=== PATIENT | male | born 1960 | race Caucasian/White ===

== ENCOUNTER 2018-12-26 13:45 | Inpatient (IN) | payer MEDICARE, OTHER ==
[~2018-12-26] VITALS: Ht 162.6 cm; Wt 156.9 kg
[2018-12-26] MEDS ORDERED: ASPIRIN 325 MG TABLET ONE (13:57)
[2018-12-26] MEDS ORDERED: NITROGLYCERIN 0.4 MG/TAB BOTTLE SL ONE ×2 (13:57→14:00)
[2018-12-26] MEDS ORDERED: IV NORMAL SALINE 500 ML BAG IV ONE (14:00)
[2018-12-26] MEDS ORDERED: ASPIRIN 325 MG TABLET PO ONE (14:00)
[2018-12-26 14:13] LABS: BASOPHILS # (AUTO) 0.1 K/uL (0.0-8.0); BASOPHILS % (AUTO) 1.2 % (0.0-2.0); EOSINOPHILS # (AUTO) 0.3 K/uL (0.0-0.7); EOSINOPHILS % (AUTO) 4.1 % (0.0-7.0); HEMATOCRIT 41.8 % (36.7-47.1); HEMOGLOBIN 13.6 g/dL (12.5-16.3); LYMPHOCYTES # (AUTO) 1.3 K/uL (20.0-40.0); LYMPHOCYTES % (AUTO) 20.1 % (20.5-51.5); MEAN CORPUSCULAR HEMOGLOBIN 31.1 uug (23.8-33.4); MEAN CORPUSCULAR HGB CONC 33 g/dL (32.5-36.3); MEAN CORPUSCULAR VOLUME 95.4 fL (73.0-96.2); MONOCYTES # (AUTO) 0.4 K/uL (2.0-10.0); MONOCYTES % (AUTO) 5.6 % (0.0-11.0); NEUTROPHILS # (AUTO) 4.6 K/uL (1.8-8.9); PLATELET COUNT (AUTO) 113 K/uL (152-348); RED BLOOD CELL COUNT(AUTO) 4.38 MIL/uL (4.06-5.63); WHITE BLOOD COUNT (AUTO) 6.6 K/uL (3.6-10.2)
[2018-12-26 14:30] LABS: BILIRUBIN,DIRECT 0.2 mg/dL (0.0-0.2); BILIRUBIN,TOTAL 0.6 mg/dL (0.2-1.0); TOTAL PROTEIN, SERUM 7.1 g/dL (6.4-8.2)
[2018-12-26] MEDS ORDERED: IV NORMAL SALINE 1000 ML BAG IV ONE (14:45)
--- NOTE | 2018-12-26 14:49 | NUR ---
US tech at the bedside for VENOUS DUPLEX BLE.
[2018-12-26] MEDS ORDERED: RIVA20TA PO (15:04)
[2018-12-26] MEDS ORDERED: FOLI1TAB16 PO (15:04)
[2018-12-26] MEDS ORDERED: LEVO50TA8 PO (15:04)
[2018-12-26] MEDS ORDERED: DIPH25TA27 PO (15:04)
[2018-12-26] MEDS ORDERED: ACET-73 PO (15:04)
[2018-12-26] MEDS ORDERED: FURO40TA5 PO (15:04)
[2018-12-26] MEDS ORDERED: BLOO-140 IN (15:04)
[2018-12-26] MEDS ORDERED: TOPI50TA24 PO (15:04)
[2018-12-26] MEDS ORDERED: HYDR-3974 PO (15:04)
[2018-12-26] MEDS ORDERED: TAMS-3 PO (15:04)
[2018-12-26] MEDS ORDERED: CLON1TAB12 PO (15:04)
[2018-12-26] MEDS ORDERED: DOCU-270 PO (15:04)
[2018-12-26] MEDS ORDERED: PANT40TA4 PO (15:04)
[2018-12-26] MEDS ORDERED: SUMA50TA PO (15:04)
[2018-12-26] MEDS ORDERED: TRIA80OI2 TP (15:04)
[2018-12-26] MEDS ORDERED: POTA10CA43 PO (15:04)
[2018-12-26] MEDS ORDERED: INSU3INS6 SQ (15:04)
[2018-12-26] MEDS ORDERED: IPRA3AMP22 IH (15:04)
[2018-12-26] MEDS ORDERED: GABA-534 PO (15:04)
[2018-12-26] MEDS ORDERED: POLY17PO4 PO (15:04)
[2018-12-26] MEDS ORDERED: DULO30CA2 PO (15:04)
--- NOTE | 2018-12-26 15:07 | NUR ---
Dr. Lama spoke with Dr. Higgins on the telephone for pt report and admission. Pt to be admitted to telemetry status.
[2018-12-26] MEDS ORDERED: SWABABLE VALVE TRANSFER SET EA MC ONE (15:28)
[2018-12-26] MEDS ORDERED: IOHEXOL 350 100 ML INFUS..BTL ONE (15:28)
[2018-12-26] MEDS ORDERED: IV NORMAL SALINE 250 ML IV ONE (15:28)
--- NOTE | 2018-12-26 15:40 | NUR ---
Full telephone SBAR report given to ISHAAN Cordova 3rd floor.
--- NOTE | 2018-12-26 15:51 | NUR ---
Pt brought down to radiology for CT angiogram. VSS wnl. Pt stable and nad noted upon leaving the ER.
--- NOTE | 2018-12-26 16:17 | NUR ---
Pt returned from CT angiogram. Pt stable and noted upon returning to the ER.
[2018-12-26 16:34] VITALS: BP 120/75
--- NOTE | 2018-12-26 16:35 | NUR ---
Pt brought up to 304-T by fish and wildlife technician for telemetry admission. VSS wnl. Pt stable and nad noted upon leaving the ER.
--- NOTE | 2018-12-26 16:36 | NUR ---
RECEIVED PATIENT FROM ED 58 YEARS OLD MALE BY DONNIE TO ROOM 304 WITH DX OF CHEST PAIN PLACED INTO BED FIXED AND MADE COMFORTABLE PATIENT IS ALERT AND ORIENTED DENIES PAIN OR DISCOMFORTS AT THIS TIME HE IS ON O2 AT 2L/M BY NASAL CANULA PATIENT IS INCONTINENT OF BOWEL AND BLADDER ASSISTED WITH AMBIKA CARE PATIENT HAS GENERALISED REDNESS ESCORIATIONS SKIN TACTS ALL OVER HIS SKIN SIGN PAINTER HELPER CONSULTED TLE IS SR MADE COMFORTABLE.
[2018-12-26] MEDS ORDERED: ZOLPIDEM 5 MG TABLET PO PRN (17:15)
[2018-12-26] MEDS ORDERED: diphenhydrAMINE 25 MG CAP PO PRN (17:15)
[2018-12-26] MEDS ORDERED: Z GUARD REMEDY PASTE 57 GM TUBE TOP PRN (17:15)
[2018-12-26] MEDS ORDERED: ACETAMINOPHEN ES 500 MG TABLET PO PRN (17:15)
[2018-12-26] MEDS ORDERED: MAGNESIUM HYDROXIDE 30 ML LIQUID UDC PO PRN (17:15)
[2018-12-26] MEDS ORDERED: SUMATRIPTAN SUCCINATE 50 MG TABLET PO PRN (17:15)
[2018-12-26] MEDS ORDERED: NITROGLYCERIN 0.4 MG/TAB BOTTLE SL PRN (17:30)
--- NOTE | 2018-12-26 18:07 | NUR ---
RESTING IN ROOM WITH NO DISTRESS AT THIS TIME.
--- NOTE | 2018-12-26 19:50 | NUR ---
PATIENT ALERT ORIENTED, NO SOB NO CHEST PAIN. PATIENT ON TELE MONITOR NO SOB NO CHEST PAIN AT THIS TIME. PATIENT HAS NO COMPLAIN OF PAIN NOR DISCOMFORT, PATIENT TURN AND REPOSITION SELF, CONT TO MONITOR.
[2018-12-26 20:12] VITALS: BP 130/62
[2018-12-26] MEDS: TAMSULOSIN HCL 0.4 MG CAP.SR.24H PO SCH (20:47)
[2018-12-26] MEDS: TOPIRAMATE 25 MG TABLET PO SCH (20:47)
[2018-12-27 00:10] VITALS: BP 94/48
[2018-12-27 04:53] VITALS: BP 105/52
[2018-12-27] MEDS: ACETAMINOPHEN 325 MG TABLET PO PRN (05:00)
--- NOTE | 2018-12-27 05:09 | NUR ---
PATIENT ALERT ORIENTED, NO SOB NO CHEST PAIN. PATIENT HAS EPISODE OF TACHY UP TO 107 BUT NOT SUSTAINABLE. PATIENT ASYMPTOMATIC THIS TIME. COMPLAIN OF MILD PAIN GIVEN PAIN MEDS. CONT TO MONITOR.
[2018-12-27] MEDS: LEVOTHYROXINE SODIUM 50 MCG TABLET PO SCH (06:01)
[2018-12-27] MEDS: PANTOPRAZOLE SODIUM 40 MG TABLET.DR PO SCH (06:01)
[2018-12-27 06:37] LABS: CREATININE 0.8 mg/dL (0.6-1.3); MAGNESIUM 1.6 mg/dL (1.8-2.4); PHOSPHOROUS 4.2 mg/dL (2.5-4.9); POTASSIUM 4.3 mmol/L (3.5-5.1)
[2018-12-27 07:12] LABS: BASOPHILS % (AUTO) 0.7 % (0.0-2.0); EOSINOPHILS # (AUTO) 0.2 K/uL (0.0-0.7); EOSINOPHILS % (AUTO) 4.6 % (0.0-7.0); HEMATOCRIT 41.1 % (36.7-47.1); HEMOGLOBIN 13.7 g/dL (12.5-16.3); LYMPHOCYTES # (AUTO) 0.8 K/uL (20.0-40.0); LYMPHOCYTES % (AUTO) 16.4 % (20.5-51.5); MEAN CORPUSCULAR HEMOGLOBIN 31.6 uug (23.8-33.4); MEAN CORPUSCULAR HGB CONC 33 g/dL (32.5-36.3); MEAN CORPUSCULAR VOLUME 94.7 fL (73.0-96.2); MONOCYTES # (AUTO) 0.3 K/uL (2.0-10.0); MONOCYTES % (AUTO) 5.9 % (0.0-11.0); NEUTROPHILS # (AUTO) 3.4 K/uL (1.8-8.9); NEUTROPHILS % (AUTO) 72.4 % (38.5-71.5); PLATELET COUNT (AUTO) 101 K/uL (152-348); RED BLOOD CELL COUNT(AUTO) 4.34 MIL/uL (4.06-5.63); WHITE BLOOD COUNT (AUTO) 4.7 K/uL (3.6-10.2)
--- NOTE | 2018-12-27 07:25 | NUR ---
Patient lab result glucose 309, bun 5, and mag 1.6. Notify Mendoza Sanchez awaiting for orders. Endorse to next shift.
--- NOTE | 2018-12-27 07:44 | NUR ---
Called and spoke to Dr Yoo and the lab glucose 309, bun 5, mag 1.6. stated he will come and see the patient.
--- NOTE | 2018-12-27 08:03 | NUR ---
RECEIVED PATIENT AWAKE ALERT AND ORIENTED DENIES PAIN OR DISCOMFORTS AT THIS TIME ON O2 WITH NO S/S OF INFILTERATION AT THIS TIME REMAIN ON TELE WITH NO ECTOPY ENCOURAGED AND ASSISTED TO TURN AND REPOSITION CALL LIGHTS AND PERSONAL BELONGINGS ARE WITHIN EASY REACH MADE COMFORTABLE NOT IN DISTRESS AT THIS TIME.
[2018-12-27] MEDS: FUROSEMIDE 40 MG TABLET PO SCH ×2 (08:16→16:38)
[2018-12-27] MEDS: CLONAZEPAM 1 MG TABLET PO SCH ×2 (08:16→16:38)
[2018-12-27] MEDS: GABAPENTIN 300 MG CAPSULE PO SCH ×3 (08:16→16:38)
[2018-12-27] MEDS: DOCUSATE SODIUM 100 MG CAPSULE PO SCH ×2 (08:17→16:38)
[2018-12-27] MEDS: TOPIRAMATE 25 MG TABLET PO SCH ×2 (08:17→16:38)
[2018-12-27] MEDS: MIRALAX 17 GM POWD.PACK PO SCH (08:17)
[2018-12-27] MEDS: FOLIC ACID 1 MG TABLET PO SCH ×2 (08:17→16:38)
[2018-12-27] MEDS: DULOXETINE 30 MG CAPSULE.DR PO SCH ×2 (08:17→16:38)
[2018-12-27] MEDS ORDERED: Medication Not On Formulary EA (Topiramate 50 MG) PO SCH (09:00)
[2018-12-27] MEDS ORDERED: POTASSIUM CHLORIDE 10 MEQ TAB.PRT.SR PO SCH (09:00)
[2018-12-27] MEDS ORDERED: TRIAMCINOLONE ACET 0.1% OINT 60 GM TUBE TP SCH (09:00)
[2018-12-27] MEDS ORDERED: HYDROCODONE/APAP 5-325MG TABLET PO SCH (09:00)
[2018-12-27] MEDS: POTASSIUM CHLORIDE 20 MEQ TAB.PRT.SR PO SCH (09:09)
[2018-12-27] MEDS ORDERED: MAGNESIUM SULFATE/D5W 100 ML IV SCH ×2 (10:00→10:30)
[2018-12-27 11:40] VITALS: BP 109/56
--- NOTE | 2018-12-27 12:10 | NUR ---
MAG LEVEL IS 1.[address] ALEXIS WITH NEW OORDERS AND NOTED
--- NOTE | 2018-12-27 12:30 | NUR ---
CALLED DR ALEXIS RE PATIENT IS DIABETIC AND HAS ON ACCUCHECK ORDER BLOOD SUGAR IS 345 WITH NO SYMPTOMS SPOKE COLLEEN AND DR ALEXIS LATER RETURNED CALL AND STATED THAT HE IS NOT THE DOCTOR IT SHOULD BE DR BENAVIDEZ.
[2018-12-27] MEDS ORDERED: DEXTROSE 50% 50 ML DISP.SYRIN IV PRN (14:15)
[2018-12-27] MEDS: HYDROCODONE/APAP 5-325MG TABLET PO PRN (14:48)
--- NOTE | 2018-12-27 14:48 | NUR ---
WOUND CARE CONSULT: PT PRESENTS WITH REDNESS, SWELLING AND DISCOLORATION TO LEFT LOWER LEG, VERY RED RASH TO MULTIPLE SKIN FOLDS AND BUTTOCKS, PERINEUM, PRESENT ON ADMISSION. RECOMMENDATIONS MADE FOR SKIN CARE AND PROTECTION. DISCUSSED WITH NURSING STAFF. DEFER TO MD FOR LOWER LEG. WILL SEE PRN. MD IN AGREEMENT WITH PLAN OF CARE. PT IS INDEPENDENT WITH BED MOBILITY AND IS CONTINENT AT THIS TIME. WILL SEE PRN. CURRENT RUTHY SCORE IS 17. Addendum: 12/27/18 at 1455 by JANNIE GARCIA RN Amended: Links added.
--- NOTE | 2018-12-27 15:30 | NUR ---
NEW ORDERS FOR ACCUCHECK AND INSULIN COVERAGE RECEIVED FROM DR GIRON NA NOTED.
[2018-12-27 16:13] VITALS: BP 91/49
[2018-12-27] MEDS: BLOOD SUGAR DIAGNOSTIC 1 EACH STRIP VI SCH ×2 (16:34→21:49)
[2018-12-27] MEDS: INSULIN REGULAR, HUMAN 300 UNIT/3 ML VIAL SQ PRN (16:45)
[2018-12-27] MEDS: RIVAROXABAN 10 MG TABLET PO SCH (17:19)
--- NOTE | 2018-12-27 18:00 | NUR ---
PATIENT IS RESTING WAS MEDICATED PO XI FOR C/O GEN PAIN AND WAS HELPFUL MADE COMFORTABLE VOIDING WELL USING THE URINAL AT THIS TIME.
[2018-12-27 18:42] VITALS: BP 116/72
--- NOTE | 2018-12-27 19:45 | NUR ---
PATIENT ALERT ORIENTED, NO SOB NO CHEST PAIN, TELE MONITOR SINUS RYTHM AT THIS TIME. PATIENT HAS NO COMPLAIN OF PAIN, KEPT CLEAN AND DRY, CONT TO MONITOR.
[2018-12-27] MEDS ORDERED: PERMETHRIN 5% CREAM 60 GM TUBE TP ONE (20:30)
--- NOTE | 2018-12-27 20:30 | NUR ---
PATIENT ALERT ORIENTED, PATIENT IS ON CPAP AT THIS TIME, TOLERATE WELL. PATIENT SEEN BY GARCÍA FOOTWEAR FACTORY WORKER WITH ORDER OF ELIMITE CR AND ABX FOR FUNGAL RASHES. CONT TO MONITOR.
[2018-12-27] MEDS ORDERED: INSULIN GLARGINE,HUM 300 UNITS/3 ML CARTRIDGE SQ SCH (21:00)
[2018-12-27] MEDS: TAMSULOSIN HCL 0.4 MG CAP.SR.24H PO SCH (21:49)
[2018-12-27] MEDS: DOXYCYCLINE HYCLATE 100 MG TABLET PO SCH (21:49)
[2018-12-27] MEDS: ATORVASTATIN 40 MG TABLET PO SCH (21:49)
[2018-12-27] MEDS: INSULIN REGULAR, HUMAN 300 UNITS/3 ML VIAL SQ PRN (21:53)
[2018-12-27] MEDS: FLUCONAZOLE 100 MG TABLET PO SCH (22:00)
--- NOTE | 2018-12-27 22:00 | NUR ---
APPLIED ELIMINTE CR FROM NECK DOWN, TOLERATE WELL. TX DONE ON MULTIPLE RASHES OF ABDOMEN, GROIN, SCROTUM, AMBIKA AREA, UNDERNEAT BREAST AND ARMPIT. TOLERATE WELL. CONT TO MONITOR. CONTINUE ON CPAP NO DESATURATION NOTED. CONT TO MONITOR.
[2018-12-27 22:04] VITALS: BP 105/48
[2018-12-27] MEDS: CLOTRIMAZOLE/BETAMET DIPROP CREAM 15 GM TUBE TOP SCH (22:06)
[2018-12-28 00:30] VITALS: BP 106/78
[2018-12-28 05:16] VITALS: BP 105/31
[2018-12-28 05:19] VITALS: BP 119/65
[2018-12-28] MEDS: LEVOTHYROXINE SODIUM 50 MCG TABLET PO SCH (06:21)
[2018-12-28] MEDS: PANTOPRAZOLE SODIUM 40 MG TABLET.DR PO SCH (06:21)
[2018-12-28] MEDS: BLOOD SUGAR DIAGNOSTIC 1 EACH STRIP VI SCH ×4 (06:21→22:00)
--- NOTE | 2018-12-28 06:42 | NUR ---
PATIENT ALERT ORIENTED, NO SOB NO CHEST PAIN, TOLERATE CPAP NO S/S OF DESATURATION NOTED. PATIENT ON TELE MONITOR SINUS RYTHM AT 92, PATIENT DENIES PAIN, TX CONT ON MULTIPLE RASHES, PATIENT CONTINENT AND INCONTINENT OF BLADDER, PATIENT REFUSED TO WEAR GOWN PREFER TO HAVE SHEETS ONLY, RESPECT PATIENT WISHES. ENDORSE TO NEXT SHIFT.
[2018-12-28 07:00] LABS: MAGNESIUM 1.6 mg/dL (1.8-2.4); POTASSIUM 4.1 mmol/L (3.5-5.1)
[2018-12-28] MEDS: INSULIN REGULAR, HUMAN 300 UNIT/3 ML VIAL SQ PRN ×3 (07:57→17:35)
--- NOTE | 2018-12-28 08:00 | NUR ---
AWAKE ALERT AND ORIENTED X3 WITH 2-3L O2 VIA NC SATURATING 97%. NO C/O PAIN OR DISTRESS SR ON MONITOR. CONTINUE MONITORING. NO SS OF INSULIN REACTION
[2018-12-28] MEDS: GABAPENTIN 300 MG CAPSULE PO SCH ×3 (08:03→17:39)
[2018-12-28] MEDS: DOXYCYCLINE HYCLATE 100 MG TABLET PO SCH ×2 (08:03→21:57)
[2018-12-28] MEDS: FOLIC ACID 1 MG TABLET PO SCH ×2 (08:03→17:39)
[2018-12-28] MEDS: DOCUSATE SODIUM 100 MG CAPSULE PO SCH ×2 (08:03→17:39)
[2018-12-28] MEDS: TOPIRAMATE 25 MG TABLET PO SCH ×2 (08:03→17:39)
[2018-12-28] MEDS: POTASSIUM CHLORIDE 20 MEQ TAB.PRT.SR PO SCH (08:03)
[2018-12-28] MEDS: CLONAZEPAM 1 MG TABLET PO SCH ×2 (08:03→17:39)
[2018-12-28] MEDS: MIRALAX 17 GM POWD.PACK PO SCH (08:04)
[2018-12-28] MEDS: FLUCONAZOLE 100 MG TABLET PO SCH (08:04)
[2018-12-28] MEDS: DULOXETINE 30 MG CAPSULE.DR PO SCH ×2 (08:04→17:39)
[2018-12-28] MEDS: FUROSEMIDE 40 MG TABLET PO SCH ×2 (08:04→17:39)
[2018-12-28] MEDS: NYSTATIN CREAM 30 GM TUBE TOP SCH ×3 (08:05→17:39)
[2018-12-28] MEDS: CLOTRIMAZOLE/BETAMET DIPROP CREAM 15 GM TUBE TOP SCH ×2 (08:05→21:57)
[2018-12-28] MEDS ORDERED: ALBU2.5V38 IH (10:17)
[2018-12-28] MEDS: MAGNESIUM SULFATE/D5W 100 ML IV SCH ×2 (10:42→11:51)
[2018-12-28 11:30] VITALS: BP 128/74
--- NOTE | 2018-12-28 11:30 | NUR ---
SEEN BY HOSPITALIST AND OPEN HEARTH HELPER FOR FOLLOW-UP CONTINUE WITH CURRENT TX PLAN. PLAN TO DC IN AM. LOW MAGNESIUM REPLACED
--- NOTE | 2018-12-28 12:00 | NUR ---
COMPLETE BATH DONE INDEPENDENTLY IN THE SHOWER ROOM AREA, CREAM APPLIED AFTER ORDERED
[2018-12-28] MEDS: IPRATROPIUM BROMIDE 0.5 MG/2.5 ML NEBU NEB SCH ×2 (13:26→19:17)
--- NOTE | 2018-12-28 14:37 | NUR ---
NO ACUTE CHANGE FROM AM ASSESSMENT SR ON MONITOR
[2018-12-28 14:52] VITALS: BP 100/53
[2018-12-28] MEDS: RIVAROXABAN 10 MG TABLET PO SCH (17:40)
--- NOTE | 2018-12-28 19:00 | NUR ---
patient in bed resting, on contact isolation, MRSA in the nares, no c/o pain at this times. iv intact and patent, kept clean and dry at all times. safety and comfort provided at all times. will continue to monitor.
[2018-12-28] MEDS: MUPIROCIN 2% OINT 22 GM TUBE NS SCH ×2 (19:30→21:56)
[2018-12-28 20:02] VITALS: BP 112/59
[2018-12-28] MEDS ORDERED: INSULIN GLARGINE,HUM 300 UNITS/3 ML CARTRIDGE SQ SCH (21:00)
[2018-12-28] MEDS: TAMSULOSIN HCL 0.4 MG CAP.SR.24H PO SCH (21:57)
[2018-12-28] MEDS: ATORVASTATIN 40 MG TABLET PO SCH (21:57)
[2018-12-28] MEDS: INSULIN REGULAR, HUMAN 300 UNITS/3 ML VIAL SQ PRN (22:05)
[2018-12-29] MEDS: IPRATROPIUM BROMIDE 0.5 MG/2.5 ML NEBU NEB SCH ×4 (00:37→19:04)
[2018-12-29 00:38] VITALS: BP 127/85
[2018-12-29 04:56] VITALS: BP 134/59
--- NOTE | 2018-12-29 06:30 | NUR ---
Patient slept intermittently. No complaints of pain. All needs attended. Will endorse accordingly
[2018-12-29] MEDS: LEVOTHYROXINE SODIUM 50 MCG TABLET PO SCH (06:37)
[2018-12-29] MEDS: PANTOPRAZOLE SODIUM 40 MG TABLET.DR PO SCH (06:37)
[2018-12-29] MEDS: BLOOD SUGAR DIAGNOSTIC 1 EACH STRIP VI SCH ×5 (06:39→20:38)
--- NOTE | 2018-12-29 07:30 | NUR ---
Received patient in Bed, awake with Bipap inplaced. No signs of distress noted. No SOB. No complain of Pain of Discomfort. On contact Isolation for MRSA Nares, proper PPE strictly Observed. patient has a Blood Sugar or 317 in AM, 16 units will give prior Breakfast. All needs attended and met. will continue to monitor.
[2018-12-29 08:11] LABS: MAGNESIUM 1.9 mg/dL (1.8-2.4); POTASSIUM 4.3 mmol/L (3.5-5.1)
[2018-12-29] MEDS: INSULIN REGULAR, HUMAN 300 UNIT/3 ML VIAL SQ PRN ×3 (08:12→16:49)
[2018-12-29] MEDS: CLONAZEPAM 1 MG TABLET PO SCH ×2 (08:15→16:19)
[2018-12-29] MEDS: DOCUSATE SODIUM 100 MG CAPSULE PO SCH ×2 (08:15→16:19)
[2018-12-29] MEDS: FOLIC ACID 1 MG TABLET PO SCH ×2 (08:15→16:19)
[2018-12-29] MEDS: FLUCONAZOLE 100 MG TABLET PO SCH (08:15)
[2018-12-29] MEDS: DULOXETINE 30 MG CAPSULE.DR PO SCH ×2 (08:15→16:19)
[2018-12-29] MEDS: POTASSIUM CHLORIDE 20 MEQ TAB.PRT.SR PO SCH (08:15)
[2018-12-29] MEDS: FUROSEMIDE 40 MG TABLET PO SCH ×2 (08:15→16:19)
[2018-12-29] MEDS: MUPIROCIN 2% OINT 22 GM TUBE NS SCH ×2 (08:16→20:49)
[2018-12-29] MEDS: MIRALAX 17 GM POWD.PACK PO SCH (08:16)
[2018-12-29] MEDS: GABAPENTIN 300 MG CAPSULE PO SCH ×3 (08:16→16:19)
[2018-12-29] MEDS: TOPIRAMATE 25 MG TABLET PO SCH ×2 (08:16→17:24)
[2018-12-29] MEDS: CLOTRIMAZOLE/BETAMET DIPROP CREAM 15 GM TUBE TOP SCH ×2 (08:16→20:47)
[2018-12-29] MEDS: NYSTATIN CREAM 30 GM TUBE TOP SCH ×3 (08:16→16:56)
[2018-12-29] MEDS: DOXYCYCLINE HYCLATE 100 MG TABLET PO SCH ×2 (08:16→20:36)
--- NOTE | 2018-12-29 08:30 | NUR ---
Seen and examined by Dr. Yoo, aware with Blood sugar of 317, with New Order of lantus 30 units q 12hrs. Patient is aware.
[2018-12-29] MEDS: INSULIN GLARGINE,HUM 300 UNITS/3 ML CARTRIDGE SQ SCH ×3 (08:56→20:43)
[2018-12-29] MEDS: ONDANSETRON 4 MG/2 ML VIAL IV PRN (09:01)
[2018-12-29 11:30] VITALS: BP 107/59
[2018-12-29 15:10] VITALS: BP 117/68
[2018-12-29] MEDS: RIVAROXABAN 10 MG TABLET PO SCH (17:25)
--- NOTE | 2018-12-29 18:20 | NUR ---
Patient in Bed, awake, alert and verbally responsive. No signs of distress noted. On Oxygen at 3LPM, No SOB noted. No complain of pain or discomfort. Changed Lantus to 30 units Q12hrs, latest Blood sugar is 250, 8 units given per sliding scale. All due medications given as ordered. kept clean and comfortable. Will endorse to Oncoming Nurse.
[2018-12-29 20:03] VITALS: BP 116/68
[2018-12-29] MEDS: TAMSULOSIN HCL 0.4 MG CAP.SR.24H PO SCH (20:36)
[2018-12-29] MEDS: ATORVASTATIN 40 MG TABLET PO SCH (20:36)
[2018-12-29] MEDS: INSULIN REGULAR, HUMAN 300 UNITS/3 ML VIAL SQ PRN (20:42)
[2018-12-30] MEDS: IPRATROPIUM BROMIDE 0.5 MG/2.5 ML NEBU NEB SCH ×5 (00:58→19:27)
--- NOTE | 2018-12-30 01:30 | NUR ---
Pt rested well in between care; BiPap per RT; report given to Robbin QUIROS who will assume care.
[2018-12-30 04:58] VITALS: BP 117/77
[2018-12-30] MEDS: PANTOPRAZOLE SODIUM 40 MG TABLET.DR PO SCH (06:30)
[2018-12-30] MEDS: LEVOTHYROXINE SODIUM 50 MCG TABLET PO SCH (06:30)
--- NOTE | 2018-12-30 07:15 | NUR ---
Patient in Bed, awake and verbally responsive. No signs of distress noted. No SOB. No complain of Pain or discomfort. AM Blood Sugar is 263. All needs attended and met. Will continue to monitor.
[2018-12-30] MEDS: BLOOD SUGAR DIAGNOSTIC 1 EACH STRIP VI SCH ×5 (07:27→22:00)
[2018-12-30] MEDS: INSULIN REGULAR, HUMAN 300 UNIT/3 ML VIAL SQ PRN ×3 (07:57→17:22)
[2018-12-30] MEDS: INSULIN GLARGINE,HUM 300 UNITS/3 ML CARTRIDGE SQ SCH (08:14)
[2018-12-30] MEDS: ONDANSETRON 4 MG/2 ML VIAL IV PRN (08:19)
[2018-12-30] MEDS: CLONAZEPAM 1 MG TABLET PO SCH ×2 (08:21→16:53)
[2018-12-30] MEDS: DOCUSATE SODIUM 100 MG CAPSULE PO SCH ×2 (08:21→16:52)
[2018-12-30] MEDS: DULOXETINE 30 MG CAPSULE.DR PO SCH ×2 (08:21→16:52)
[2018-12-30] MEDS: FOLIC ACID 1 MG TABLET PO SCH ×2 (08:21→16:53)
[2018-12-30] MEDS: MIRALAX 17 GM POWD.PACK PO SCH (08:21)
[2018-12-30] MEDS: FUROSEMIDE 40 MG TABLET PO SCH ×2 (08:21→16:52)
[2018-12-30] MEDS: FLUCONAZOLE 100 MG TABLET PO SCH (08:21)
[2018-12-30] MEDS: GABAPENTIN 300 MG CAPSULE PO SCH ×3 (08:21→16:52)
[2018-12-30] MEDS: POTASSIUM CHLORIDE 20 MEQ TAB.PRT.SR PO SCH (08:21)
[2018-12-30] MEDS: TOPIRAMATE 25 MG TABLET PO SCH ×2 (08:22→16:53)
[2018-12-30] MEDS: CLOTRIMAZOLE/BETAMET DIPROP CREAM 15 GM TUBE TOP SCH ×2 (08:22→21:00)
[2018-12-30] MEDS: DOXYCYCLINE HYCLATE 100 MG TABLET PO SCH ×2 (08:22→22:38)
[2018-12-30] MEDS: MUPIROCIN 2% OINT 22 GM TUBE NS SCH ×2 (08:24→21:00)
[2018-12-30] MEDS: NYSTATIN CREAM 30 GM TUBE TOP SCH ×3 (08:24→16:53)
--- NOTE | 2018-12-30 08:40 | NUR ---
Seen by Dr. Yoo with New Order of lantus 34 units Q12 hrs, to start Tomorrow AM.
[2018-12-30 11:40] VITALS: BP 112/63
[2018-12-30 15:34] VITALS: BP 113/74
[2018-12-30] MEDS: RIVAROXABAN 10 MG TABLET PO SCH (17:23)
--- NOTE | 2018-12-30 18:42 | NUR ---
Patient in bed awake and verballyb responsive. No signs of distress noted. No SOB. on Oxygen via Nasal canula at 3LPM, sat 95%. No complain of Pain or discomfort. No signs of Hyper/Hypo glycemia. Seen by Dr. Yoo with Order to increase lantus 34 units Q12 hrs start tomorrow AM. All due medications given as ordered. All needs attended and met. Will Endorse to Oncoming Nurse.
--- NOTE | 2018-12-30 19:00 | NUR ---
in no acute distress, needs attended to ,slept on and off. vitals taken and recorded .
[2018-12-30 20:00] VITALS: BP 96/60
[2018-12-30] MEDS: TAMSULOSIN HCL 0.4 MG CAP.SR.24H PO SCH (21:00)
[2018-12-30] MEDS: ATORVASTATIN 40 MG TABLET PO SCH (22:38)
[2018-12-30] MEDS: INSULIN REGULAR, HUMAN 300 UNITS/3 ML VIAL SQ PRN (22:44)
[2018-12-31] MEDS: IPRATROPIUM BROMIDE 0.5 MG/2.5 ML NEBU NEB SCH ×4 (00:34→19:33)
--- NOTE | 2018-12-31 02:30 | NUR ---
SLEPT MOST OS THE TIMES. KEPT WARM AND COMFORTABLE,NO COMPLAINTS PRESENTED.LOOKING FORWARD TO HIS DISCHARGE IN AM.
--- NOTE | 2018-12-31 02:54 | NUR ---
resting in bed, no diabetic crisis noted.
[2018-12-31 04:52] VITALS: BP 95/40
[2018-12-31] MEDS: PANTOPRAZOLE SODIUM 40 MG TABLET.DR PO SCH (06:25)
[2018-12-31] MEDS: LEVOTHYROXINE SODIUM 50 MCG TABLET PO SCH (06:25)
--- NOTE | 2018-12-31 06:56 | NUR ---
APPEARS SLEEPING, NOTHING UNUSUAL NOTED.ENDORSED TOAM NURSE IN FAIR CONDITION.
--- NOTE | 2018-12-31 07:15 | NUR ---
Received patient in Bed, awake and verbally responsive. No sign of distress noted. No SOB. No complain of Pain, denies Chest pain. last Blood sugar is 262, will give 12 units before Breakfast. All needs attended. Will continue to monitor.
[2018-12-31] MEDS: INSULIN REGULAR, HUMAN 300 UNIT/3 ML VIAL SQ PRN ×3 (07:57→16:52)
[2018-12-31] MEDS: FUROSEMIDE 40 MG TABLET PO SCH ×2 (08:14→16:20)
[2018-12-31] MEDS: DULOXETINE 30 MG CAPSULE.DR PO SCH ×2 (08:14→16:20)
[2018-12-31] MEDS: GABAPENTIN 300 MG CAPSULE PO SCH ×3 (08:14→16:20)
[2018-12-31] MEDS: FOLIC ACID 1 MG TABLET PO SCH ×2 (08:14→16:20)
[2018-12-31] MEDS: DOCUSATE SODIUM 100 MG CAPSULE PO SCH ×2 (08:14→16:19)
[2018-12-31] MEDS: FLUCONAZOLE 100 MG TABLET PO SCH (08:14)
[2018-12-31] MEDS: CLONAZEPAM 1 MG TABLET PO SCH ×2 (08:14→16:20)
[2018-12-31] MEDS: POTASSIUM CHLORIDE 20 MEQ TAB.PRT.SR PO SCH (08:14)
[2018-12-31] MEDS: NYSTATIN CREAM 30 GM TUBE TOP SCH ×3 (08:15→16:20)
[2018-12-31] MEDS: DOXYCYCLINE HYCLATE 100 MG TABLET PO SCH ×2 (08:15→20:27)
[2018-12-31] MEDS: CLOTRIMAZOLE/BETAMET DIPROP CREAM 15 GM TUBE TOP SCH ×2 (08:15→20:35)
[2018-12-31] MEDS: MIRALAX 17 GM POWD.PACK PO SCH (08:15)
[2018-12-31] MEDS: TOPIRAMATE 25 MG TABLET PO SCH ×2 (08:15→17:00)
[2018-12-31] MEDS: MUPIROCIN 2% OINT 22 GM TUBE NS SCH ×2 (08:35→20:27)
--- NOTE | 2018-12-31 09:15 | NUR ---
Patient with discharge Order today, patient made aware.
--- NOTE | 2018-12-31 10:00 | NUR ---
patient needs BIPAP QHS, litigation services manager called [facility] saying they need to order BIPAP first before discharging patient to them, but they cannot provide BIPAP today. Dr. Thurston is aware.
[2018-12-31 11:16] VITALS: BP 90/41
[2018-12-31] MEDS: BLOOD SUGAR DIAGNOSTIC 1 EACH STRIP VI SCH ×3 (11:26→20:22)
[2018-12-31] MEDS: ACETAMINOPHEN 325 MG TABLET PO PRN (15:11)
[2018-12-31 16:02] VITALS: BP 101/55
--- NOTE | 2018-12-31 17:00 | NUR ---
Per pillowcase maker, still waiting for BIPAP, but cannot get until Wednesday. patient with Pending Discharge Order.
[2018-12-31] MEDS: RIVAROXABAN 10 MG TABLET PO SCH (17:01)
--- NOTE | 2018-12-31 18:23 | NUR ---
Patient in bed, awake and verbally responsive. No signs of distress noted. No SOB. On Oxygen via nasal canula at 2LPM, No complain of Pain or discomfort. last Blood sugar is 264, 12 units insulin was given. No signs of hyper/Hypoglycemia. Discharge still pending due to BIPAP not available at [facility]. Will Endorse to Oncoming Nurse.
--- NOTE | 2018-12-31 19:30 | NUR ---
Received patient awake and alert in bed, no signs of acute distress noted. No complaints of chest pain or SOB. Heplock on the left wrist is intact and patent. Safety measures initiated. Bed is low and locked, call light within reach. Will continue to monitor.
[2018-12-31 19:48] VITALS: BP 95/50
[2018-12-31] MEDS: INSULIN REGULAR, HUMAN 300 UNITS/3 ML VIAL SQ PRN (20:24)
[2018-12-31] MEDS: INSULIN GLARGINE,HUM 300 UNITS/3 ML CARTRIDGE SQ SCH (20:26)
[2018-12-31] MEDS: ATORVASTATIN 40 MG TABLET PO SCH (20:27)
[2018-12-31] MEDS: TAMSULOSIN HCL 0.4 MG CAP.SR.24H PO SCH (20:27)
[2019-01-01] MEDS: IPRATROPIUM BROMIDE 0.5 MG/2.5 ML NEBU NEB SCH ×4 (01:06→19:19)
[2019-01-01 05:01] VITALS: BP 96/55
--- NOTE | 2019-01-01 05:40 | NUR ---
Patient slept well with BiPap. No distress noted. No complaints of pain or SOB. All medications given as ordered and tolerated well. Safety measures given. Will endorse to next shift.
[2019-01-01] MEDS: LEVOTHYROXINE SODIUM 50 MCG TABLET PO SCH (06:32)
[2019-01-01] MEDS: PANTOPRAZOLE SODIUM 40 MG TABLET.DR PO SCH (06:32)
[2019-01-01] MEDS: BLOOD SUGAR DIAGNOSTIC 1 EACH STRIP VI SCH ×4 (06:38→20:45)
--- NOTE | 2019-01-01 07:30 | NUR ---
Received patient awake and alert in bed, no signs of acute distress noted. No complaints of chest pain at this time. Heplock on the left wrist is intact and patent. Safety and comfort provided. Bed is low and locked, call light within reach. Will continue to monitor.
[2019-01-01] MEDS: MUPIROCIN 2% OINT 22 GM TUBE NS SCH ×2 (08:44→20:45)
[2019-01-01] MEDS: DULOXETINE 30 MG CAPSULE.DR PO SCH ×2 (08:44→17:21)
[2019-01-01] MEDS: FOLIC ACID 1 MG TABLET PO SCH ×2 (08:44→17:21)
[2019-01-01] MEDS: DOCUSATE SODIUM 100 MG CAPSULE PO SCH ×2 (08:44→17:21)
[2019-01-01] MEDS: CLONAZEPAM 1 MG TABLET PO SCH ×2 (08:44→17:21)
[2019-01-01] MEDS: MIRALAX 17 GM POWD.PACK PO SCH (08:45)
[2019-01-01] MEDS: POTASSIUM CHLORIDE 20 MEQ TAB.PRT.SR PO SCH (08:45)
[2019-01-01] MEDS: TOPIRAMATE 25 MG TABLET PO SCH ×2 (08:45→17:22)
[2019-01-01] MEDS: FUROSEMIDE 40 MG TABLET PO SCH ×2 (08:45→17:21)
[2019-01-01] MEDS: GABAPENTIN 300 MG CAPSULE PO SCH ×3 (08:45→17:21)
[2019-01-01] MEDS: FLUCONAZOLE 100 MG TABLET PO SCH (08:45)
[2019-01-01] MEDS: DOXYCYCLINE HYCLATE 100 MG TABLET PO SCH ×2 (08:45→20:45)
[2019-01-01] MEDS: NYSTATIN CREAM 30 GM TUBE TOP SCH ×3 (08:46→17:22)
[2019-01-01] MEDS: CLOTRIMAZOLE/BETAMET DIPROP CREAM 15 GM TUBE TOP SCH ×2 (08:46→20:45)
[2019-01-01] MEDS: INSULIN GLARGINE,HUM 300 UNITS/3 ML CARTRIDGE SQ SCH ×2 (08:50→20:44)
[2019-01-01 11:18] VITALS: BP 98/51
[2019-01-01] MEDS: INSULIN REGULAR, HUMAN 300 UNIT/3 ML VIAL SQ PRN ×2 (12:25→17:24)
[2019-01-01 17:23] VITALS: BP 92/50
[2019-01-01] MEDS: RIVAROXABAN 10 MG TABLET PO SCH (17:59)
--- NOTE | 2019-01-01 18:00 | NUR ---
Patient awake and alert in bed, no signs of acute distress noted. No complaints of chest pain at this time. Safety and comfort provided. Bed is low and locked, call light within reach. Will continue to monitor.
--- NOTE | 2019-01-01 19:50 | NUR ---
Received patient in bed with BiPaP machine on, tolerating well. No signs of acute distress noted. No complaints of pain or SOB. Per morning shift nurse, patient had removed heplock and then asked to put a new one, but patient said he hasn't needed the IV for days and refused. Patient is on contact isolation for MRSA of the nares. Safety measures initiated. Bed is low and locked, call light and personal belongings within reach. Will continue to monitor.
[2019-01-01 20:02] VITALS: BP 110/71
[2019-01-01] MEDS: INSULIN REGULAR, HUMAN 300 UNITS/3 ML VIAL SQ PRN (20:42)
[2019-01-01] MEDS: ATORVASTATIN 40 MG TABLET PO SCH (20:45)
[2019-01-01] MEDS: TAMSULOSIN HCL 0.4 MG CAP.SR.24H PO SCH (20:45)
[2019-01-02] MEDS: IPRATROPIUM BROMIDE 0.5 MG/2.5 ML NEBU NEB SCH ×3 (01:31→14:40)
[2019-01-02 05:32] VITALS: BP 120/72
[2019-01-02] MEDS: LEVOTHYROXINE SODIUM 50 MCG TABLET PO SCH (06:07)
[2019-01-02] MEDS: PANTOPRAZOLE SODIUM 40 MG TABLET.DR PO SCH (06:07)
[2019-01-02] MEDS: HYDROCODONE/APAP 5-325MG TABLET PO PRN (06:08)
[2019-01-02] MEDS: BLOOD SUGAR DIAGNOSTIC 1 EACH STRIP VI SCH ×2 (06:49→12:11)
--- NOTE | 2019-01-02 06:53 | NUR ---
patient slept well with bipap. No distress noted, no complaints of SOB. Complained of pain of the BLE with PRN pain medication given and so far has been effective. Safety measures given. Will endorse to next shift.
--- NOTE | 2019-01-02 07:15 | NUR ---
RECEIVED PATIENT ASLEEP EASILY AROUSABLE ON ROUNDS ALERT AND ORIENTED WHEN AWAKE DENIES PAIN OR DISCOMFORTS AT THIS TOIME ON O2 WITH NO S/S OF INFILTERATION ON SITE CALL LIGHTS AND PERSONAL BELONGINGS ARE PLACED WITHIN EASY REACH NOT IN DISTRESS AT THIS TIME.
[2019-01-02] MEDS: INSULIN REGULAR, HUMAN 300 UNIT/3 ML VIAL SQ PRN ×2 (08:41→12:15)
[2019-01-02] MEDS: GABAPENTIN 300 MG CAPSULE PO SCH ×2 (08:42→12:10)
[2019-01-02] MEDS: TOPIRAMATE 25 MG TABLET PO SCH (08:42)
[2019-01-02] MEDS: CLONAZEPAM 1 MG TABLET PO SCH (08:43)
[2019-01-02] MEDS: FUROSEMIDE 40 MG TABLET PO SCH (08:43)
[2019-01-02] MEDS: DULOXETINE 30 MG CAPSULE.DR PO SCH (08:43)
[2019-01-02] MEDS: POTASSIUM CHLORIDE 20 MEQ TAB.PRT.SR PO SCH (08:43)
[2019-01-02] MEDS: DOCUSATE SODIUM 100 MG CAPSULE PO SCH (08:43)
[2019-01-02] MEDS: DOXYCYCLINE HYCLATE 100 MG TABLET PO SCH (08:43)
[2019-01-02] MEDS: FLUCONAZOLE 100 MG TABLET PO SCH (08:43)
[2019-01-02] MEDS: FOLIC ACID 1 MG TABLET PO SCH (08:43)
[2019-01-02] MEDS: MIRALAX 17 GM POWD.PACK PO SCH (08:45)
[2019-01-02] MEDS: CLOTRIMAZOLE/BETAMET DIPROP CREAM 15 GM TUBE TOP SCH (08:47)
[2019-01-02] MEDS: NYSTATIN CREAM 30 GM TUBE TOP SCH ×2 (08:48→14:13)
[2019-01-02] MEDS: MUPIROCIN 2% OINT 22 GM TUBE NS SCH (08:48)
[2019-01-02] MEDS: INSULIN GLARGINE,HUM 300 UNITS/3 ML CARTRIDGE SQ SCH (09:11)
--- NOTE | 2019-01-02 11:00 | NUR ---
PATIENT SEEN BY THE PHYSICAL THERAPIST AND HE GAITED WITH THE FRONT WHEEL WALKER WITH GOOD ENDURANCE AND BACK TO BED.
[2019-01-02 11:42] VITALS: BP 90/44
--- NOTE | 2019-01-02 13:00 | NUR ---
PATIENT IS FOR DISCHARGE TODAY TO [facility] AND PER THE SALES ACCOUNT COORDINATOR THE FACILITY IS [id number] FOR HIM WILL CALL FOR TRANSPORTATION.PATIENT AWARE THAT HE WILL BE DISCHARGED BACK TO [facility] TODAY AND HE EXPRESSED UNDERSTANDING.
[2019-01-02 15:13] VITALS: BP 109/49
--- NOTE | 2019-01-02 15:55 | NUR ---
PATIENT DISCHARGE PICKED UP BY THE [facility] IN SATISFACTORY CONDITION WITH DISCHARGE INSTRUCTIONS AND ALL OF HIS PERSONAL BELONGINGS IN SATISFACTORY CONDITION PATIENT INSTRUCTED TO CONTINUE TAKING HIS MEDICATIONS ORDERED AND CALL HIS PRIMARY DOCTOR FOR A FOLLOW UP APPOINTMENT WITHIN THE NEXT ONE TO TWO WEEKS AND HE EXPRESSED UNDERSTANDING.
== END 2019-01-02 15:55 | disposition home health service (06) | DRG 205 ==
LOC: ER 13:45 → TELE3 16:11 → MEDSURG3 12-29 10:19
PROVIDERS: ADMIT Internal Medicine; ATTEND Hospitalist
PROC: 5A09457 Assistance with Respiratory Ventilation, 24-96 Consecutive Hours, Continuous Positive Airway Pressure (ICD-10-PCS; principal; 2018-12-26)
DX: M94.0 Chondrocostal junction syndrome [Tietze] (principal); E43 Unspecified severe protein-calorie malnutrition; J96.20 Acute and chronic respiratory failure, unspecified whether with hypoxia or hypercapnia; I50.33 Acute on chronic diastolic (congestive) heart failure; Z68.43 Body mass index [BMI] 50.0-59.9, adult; I45.2 Bifascicular block; L03.311 Cellulitis of abdominal wall; J98.11 Atelectasis; E66.01 Morbid (severe) obesity due to excess calories; M79.3 Panniculitis, unspecified; Z79.01 Long term (current) use of anticoagulants; Z86.718 Personal history of other venous thrombosis and embolism; I87.8 Other specified disorders of veins; Z22.322 Carrier or suspected carrier of Methicillin resistant Staphylococcus aureus; G47.33 Obstructive sleep apnea (adult) (pediatric); E11.40 Type 2 diabetes mellitus with diabetic neuropathy, unspecified; E11.65 Type 2 diabetes mellitus with hyperglycemia; B36.9 Superficial mycosis, unspecified; J84.10 Pulmonary fibrosis, unspecified; M19.90 Unspecified osteoarthritis, unspecified site; J44.9 Chronic obstructive pulmonary disease, unspecified; Z99.81 Dependence on supplemental oxygen; R91.1 Solitary pulmonary nodule; M77.9 Enthesopathy, unspecified; Z79.4 Long term (current) use of insulin; I77.810 Thoracic aortic ectasia; I70.0 Atherosclerosis of aorta; I34.0 Nonrheumatic mitral (valve) insufficiency
CPT/HCPCS: 36415; 70030-TC; 71045; 71275; 83735; 84100; 85025; 85730; 93005; 93307; 94640; 94660; 94664; A4663; G0378; J1815; J2405; J3475; J3590; J7030; J7040; J7050; Q9967

== ENCOUNTER 2019-02-28 15:57 | Emergency (ER) | payer MEDICARE, OTHER ==
[~2019-02-28] VITALS: Ht 162.6 cm; Wt 158.8 kg
[~2019-02-28 15:57] MED LIST: ACET-73 PO; ALBU2.5V38 IH; BLOO-140 IN; CLON1TAB12 PO; DIPH25TA27 PO; DOCU-270 PO; DULO30CA2 PO; FOLI1TAB16 PO; FURO40TA5 PO; GABA-534 PO; HYDR-3974 PO; IPRA3AMP22 IH; LEVO50TA8 PO; PANT40TA4 PO; POLY17PO4 PO; POTA10CA43 PO; RIVA20TA PO; SUMA50TA PO; TAMS-3 PO; TOPI50TA24 PO; TRIA80OI2 TP
[2019-02-28] MEDS ORDERED: ZOLP5TAB8 PO (16:17)
[2019-02-28] MEDS ORDERED: [UNRECOGNIZED DRUG - OTHER] (16:18)
[2019-02-28] MEDS ORDERED: INSU100V7 SQ (16:18)
[2019-02-28] MEDS ORDERED: INSU100V11 (16:19)
--- NOTE | 2019-02-28 16:57 | NUR ---
PATIENT WAS SEEN BY . AWAITING FOR ULTRASOUND ASSESSMENT
[2019-02-28] MEDS ORDERED: ONDANSETRON 4 MG/2 ML VIAL ONE (17:53)
[2019-02-28] MEDS ORDERED: HYDROMORPHONE 2 MG/1 ML DISP.SYRIN ONE (17:53)
[2019-02-28] MEDS: ONDANSETRON 4 MG/2 ML VIAL IM ONE (17:57)
[2019-02-28] MEDS: HYDROMORPHONE 1 MG/1 ML DISP.SYRIN IM ONE (17:57)
--- NOTE | 2019-02-28 17:57 | NUR ---
PATIENT C/O PAIN. DR RICHARD AWARE. MEDS GIVEN ORDERED. PATIENT IS SITTING UP EATING DINNER. HE IS TO BE DISCHARGED BACK TO [facility]. I CALLED SEVER[facility] AMBULANCE [facility]AN[facility] TO TRANSPORT... WITH AVG WAIT TIME OF 5 HOURS. [facility] (WHO BROUGHT HIM HERE TODAY) IS TO TAKE HIM BACK AROUND 10;00 PM TODAY.. PATIENT IS AWARE.
--- NOTE | 2019-02-28 19:00 | NUR ---
HAND OFF REPORT GIVEN TO DAVIN QUIROS
--- NOTE | 2019-02-28 22:05 | NUR ---
Patient discharged to home in stable conditon. Written and verbal after care instructions given. Patient verbalizes understanding of instructions. [id number] picked up patient via gurney.
[2019-02-28 22:06] VITALS: BP 126/70
== END 2019-02-28 22:06 | disposition home or self-care (01) ==
LOC: ER 16:00
DX: I87.2 Venous insufficiency (chronic) (peripheral) (principal); J44.9 Chronic obstructive pulmonary disease, unspecified; K21.9 Gastro-esophageal reflux disease without esophagitis; E11.9 Type 2 diabetes mellitus without complications; Z79.4 Long term (current) use of insulin; Z79.899 Other long term (current) drug therapy
CPT/HCPCS: 93970; 96372 ×2; 99284; J1170; J2405; A4663

== ENCOUNTER 2019-03-12 20:25 | Inpatient (IN) | payer MEDICARE, OTHER ==
[~2019-03-12] VITALS: Ht 172.7 cm; Wt 149.8 kg
[~2019-03-12 20:25] MED LIST changes: -ALBU2.5V38 IH; -BLOO-140 IN; -DULO30CA2 PO; -FURO40TA5 PO; +INSU100V11; +INSU100V7 SQ; -IPRA3AMP22 IH; -POLY17PO4 PO; -TOPI50TA24 PO; +ZOLP5TAB8 PO; +[UNRECOGNIZED DRUG - OTHER]
--- NOTE | 2019-03-12 20:40 | NUR ---
Dr. Valdez at bedside for MSE.
--- NOTE | 2019-03-12 20:55 | NUR ---
Ultrasound at bedside.
--- NOTE | 2019-03-12 21:06 | NUR ---
Xray at bedside.
[2019-03-12 21:20] LABS: BASOPHILS # (AUTO) 0.1 K/uL (0.0-8.0); BASOPHILS % (AUTO) 1.1 % (0.0-2.0); EOSINOPHILS # (AUTO) 0.2 K/uL (0.0-0.7); EOSINOPHILS % (AUTO) 2.6 % (0.0-7.0); HEMATOCRIT 42.6 % (36.7-47.1); HEMOGLOBIN 13.4 g/dL (12.5-16.3); LYMPHOCYTES # (AUTO) 1.1 K/uL (20.0-40.0); LYMPHOCYTES % (AUTO) 17.2 % (20.5-51.5); MEAN CORPUSCULAR HGB CONC 32 g/dL (32.5-36.3); MEAN CORPUSCULAR VOLUME 91.8 fL (73.0-96.2); MONOCYTES # (AUTO) 0.5 K/uL (2.0-10.0); MONOCYTES % (AUTO) 7.3 % (0.0-11.0); NEUTROPHILS # (AUTO) 4.7 K/uL (1.8-8.9); NEUTROPHILS % (AUTO) 71.8 % (38.5-71.5); PLATELET COUNT (AUTO) 110 K/uL (152-348); RED BLOOD CELL COUNT(AUTO) 4.64 MIL/uL (4.06-5.63); WHITE BLOOD COUNT (AUTO) 6.5 K/uL (3.6-10.2)
[2019-03-12 21:22] LABS: POTASSIUM 4.5 mmol/L (3.5-5.1)
[2019-03-12 21:36] LABS: BILIRUBIN,DIRECT 0.1 mg/dL (0.0-0.2); BILIRUBIN,TOTAL 0.5 mg/dL (0.2-1.0); TOTAL PROTEIN, SERUM 6.8 g/dL (6.4-8.2)
--- NOTE | 2019-03-12 22:53 | NUR ---
Called [facility] to page Christine Estrada NP.
--- NOTE | 2019-03-12 23:04 | NUR ---
Called [facility] to page Tip Sampson MD.
[2019-03-12] MEDS ORDERED: TIOT18CA3 IH (23:11)
[2019-03-12] MEDS ORDERED: GABA-536 PO (23:11)
[2019-03-12] MEDS ORDERED: humalog SUBCUT (23:11)
[2019-03-12] MEDS ORDERED: RIVA20TA PO (23:11)
[2019-03-12] MEDS ORDERED: ENOXAPARIN SODIUM 100 MG/ML DISP.SYRIN SQ ONE (23:15)
--- NOTE | 2019-03-12 23:18 | NUR ---
Dr. Valdez speaking with Dr. Preet Sampson. Patient accepted for admission to [facility], diagnosis: chestpain.
[2019-03-12] MEDS ORDERED: MORPHINE SULFATE 4 MG/1 ML DISP.SYRIN ONE (23:55)
[2019-03-12] MEDS ORDERED: INSULIN REGULAR, HUMAN 300 UNIT/3 ML VIAL ONE (23:58)
[2019-03-13] MEDS ORDERED: MORPHINE SULFATE 4 MG/1 ML DISP.SYRIN IV ONE
[2019-03-13] MEDS ORDERED: INSULIN REGULAR, HUMAN 300 UNIT/3 ML VIAL IV ONE
[2019-03-13 00:02] LABS: ABG BASE EXCESS 0.5 mmol/L; ABG HCO3 26.3 mmol/L; ABG PH 7.366 (7.350-7.450); ABG PO2 74.9 mmHg (75.0-100.0); ABG SITE RIGHT RADIAL; ABG TOTAL HEMOGLOBIN 13.7 G/dL (13.5-18.0); COHb 1.6 % (0.5-1.5); MetHb 0.1 % (0.0-1.5); O2Hb 93.1 % (94.0-97.0); VENT MODE Nasal Cannula
[2019-03-13] MEDS ORDERED: diphenhydrAMINE 25 MG CAP PO PRN (00:15)
[2019-03-13] MEDS ORDERED: SUMATRIPTAN SUCCINATE 50 MG TABLET PO PRN (00:15)
[2019-03-13] MEDS ORDERED: ACETAMINOPHEN ES 500 MG TABLET PO PRN (00:15)
[2019-03-13] MEDS: ALBUTEROL SULFATE 2.5 MG/3 ML NEBU NEB ONE ×2 (00:20→00:43)
--- NOTE | 2019-03-13 00:25 | NUR ---
Admitted 58/o Male under the care of Dr. Sampson. Dx: Respiratory Failure. Patient is A&Ox4. On O2 at 2lpm via NC. Placed on Tele monitor. Oriented patient to his room and w/ the use of call light. Body assessment done. Admission protocol initiated. Safety measures observed. Call light in reach
[2019-03-13] MEDS ORDERED: Z GUARD REMEDY PASTE 57 GM TUBE TOP PRN (00:30)
[2019-03-13] MEDS ORDERED: MAGNESIUM HYDROXIDE 30 ML LIQUID UDC PO PRN (00:30)
[2019-03-13] MEDS ORDERED: ACETAMINOPHEN 325 MG TABLET PO PRN (00:30)
[2019-03-13] MEDS ORDERED: ONDANSETRON 4 MG/2 ML VIAL IV PRN (00:30)
[2019-03-13] MEDS ORDERED: DEXTROSE 50% 50 ML DISP.SYRIN IV PRN (00:30)
[2019-03-13] MEDS: IPRATROPIUM BROMIDE 0.5 MG/2.5 ML NEBU NEB SCH ×6 (00:43→19:24)
[2019-03-13 00:48] VITALS: BP 140/83
--- NOTE | 2019-03-13 01:00 | NUR ---
Pt placed on CPAP per MD orders. Unable to determine Pt's settings at Home. Pt placed on CPAP of 10. Tolerating settings well. Difficult to maintain good seal due to Pt's narayan. In-line nebulizer given. Tx ten well. Will continue to monitor.
[2019-03-13 04:46] VITALS: BP 94/53
[2019-03-13] MEDS ORDERED: PIPERACILLIN SODIUM/TAZOBACTAM 3.375 G in IV DEXTROSE 5% 50 ML IV ONE (05:45)
[2019-03-13] MEDS: LEVOTHYROXINE SODIUM 50 MCG TABLET PO SCH (06:15)
[2019-03-13] MEDS: GABAPENTIN 400 MG CAPSULE PO SCH ×3 (06:15→21:06)
[2019-03-13] MEDS: PANTOPRAZOLE SODIUM 40 MG TABLET.DR PO SCH (06:15)
[2019-03-13] MEDS: BLOOD SUGAR DIAGNOSTIC 1 EACH STRIP VI SCH ×4 (06:33→20:59)
[2019-03-13] MEDS ORDERED: PIPERACILLIN/TAZOBACTAM/D5W 50 ML IV ONE (06:38)
[2019-03-13] MEDS: INSULIN REGULAR, HUMAN 300 UNIT/3 ML VIAL SQ PRN ×4 (08:12→21:03)
[2019-03-13] MEDS: INSULIN GLARGINE,HUM 300 UNITS/3 ML CARTRIDGE SQ SCH ×2 (08:13→21:02)
[2019-03-13] MEDS: POTASSIUM CHLORIDE 20 MEQ TAB.PRT.SR PO SCH (08:44)
[2019-03-13] MEDS: DOCUSATE SODIUM 100 MG CAPSULE PO SCH ×2 (08:44→16:51)
[2019-03-13] MEDS ORDERED: POTASSIUM CHLORIDE 10 MEQ TAB.PRT.SR PO SCH (09:00)
--- NOTE | 2019-03-13 10:00 | NUR ---
CONTINENT AND INCONTINENT AT TIMES REFUSED DIAPER CARE GIVEN MADE COMFORTABLE VQ SCAN DONE ORDERED MADE COMFORTABLE WILL CONTINUE TO OBSERVE.
[2019-03-13] MEDS ORDERED: ENOXAPARIN SODIUM 150 MG/ML SYRINGE SQ SCH (11:00)
[2019-03-13] MEDS ORDERED: HYDROCODONE/APAP 5-325MG TABLET PO PRN (11:30)
[2019-03-13 11:34] VITALS: BP 106/65
[2019-03-13] MEDS: FUROSEMIDE 40 MG/4 ML VIAL IV SCH ×2 (11:49→20:50)
[2019-03-13] MEDS: HYDROCODONE/APAP 5-325MG TABLET PO SCH ×2 (11:50→16:51)
[2019-03-13 11:57] LABS: BASOPHILS % (AUTO) 0.7 % (0.0-2.0); EOSINOPHILS # (AUTO) 0.2 K/uL (0.0-0.7); EOSINOPHILS % (AUTO) 3.7 % (0.0-7.0); HEMATOCRIT 41.7 % (36.7-47.1); HEMOGLOBIN 13.3 g/dL (12.5-16.3); MEAN CORPUSCULAR HEMOGLOBIN 29.5 uug (23.8-33.4); MEAN CORPUSCULAR HGB CONC 32 g/dL (32.5-36.3); MEAN CORPUSCULAR VOLUME 92.2 fL (73.0-96.2); MONOCYTES # (AUTO) 0.4 K/uL (2.0-10.0); MONOCYTES % (AUTO) 7.6 % (0.0-11.0); PLATELET COUNT (AUTO) 89 K/uL (152-348); RED BLOOD CELL COUNT(AUTO) 4.52 MIL/uL (4.06-5.63); WHITE BLOOD COUNT (AUTO) 5.7 K/uL (3.6-10.2)
--- NOTE | 2019-03-13 12:00 | NUR ---
DR DOWNING HERE TO SEE PATIENT AWARE OF MAG LEVEL 1.6 WITH NEW ORDERS AND NOTED.
[2019-03-13 12:08] LABS: BILIRUBIN,TOTAL 0.9 mg/dL (0.2-1.0); CREATININE 0.8 mg/dL (0.6-1.3); MAGNESIUM 1.6 mg/dL (1.8-2.4); PHOSPHOROUS 3.5 mg/dL (2.5-4.9); POTASSIUM 4.5 mmol/L (3.5-5.1); TOTAL PROTEIN, SERUM 6.5 g/dL (6.4-8.2)
[2019-03-13] MEDS: DILTIAZEM HCL CD 120 MG CAP.SR.24H PO SCH (12:09)
[2019-03-13] MEDS: TRIAMCINOLONE ACET 0.1% OINT 60 GM TUBE TP SCH ×2 (12:38→20:58)
[2019-03-13 12:40] LABS: BAND % (MANUAL) 4 % (0-10); EOSINOPHILS % (MANUAL) 6 % (0-8); LYMPHOCYTES % (MANUAL) 17 % (20-40); MONOCYTES % (MANUAL) 8 % (2-10); NEUTROPHILS % (MANUAL) 65 % (42-75)
[2019-03-13] MEDS: DULOXETINE 30 MG CAPSULE.DR PO SCH (12:40)
--- NOTE | 2019-03-13 13:31 | NUR ---
atrvincet double ordered.
[2019-03-13 16:00] VITALS: BP 130/88
[2019-03-13] MEDS: RIVAROXABAN 10 MG TABLET PO SCH (17:06)
[2019-03-13] MEDS: MAGNESIUM OXIDE 400 MG TABLET PO SCH (17:22)
[2019-03-13] MEDS ORDERED: ZOLPIDEM 5 MG TABLET PO SCH (18:00)
--- NOTE | 2019-03-13 19:24 | NUR ---
Atrvincet double ordered.
--- NOTE | 2019-03-13 19:30 | NUR ---
RECEIVED PT AWAKE, ALERT AND ORIENTEDX4. PT IN NO ACUTE DISTRESS. IV INTACT. SAFETY AND COMFORT PROVIDED. WILL CONTINUE TO MONITOR.
[2019-03-13 20:18] VITALS: BP 118/69
[2019-03-13] MEDS: ropiniROLE 0.5 MG TABLET PO SCH (20:50)
[2019-03-13] MEDS: TAMSULOSIN HCL 0.4 MG CAP.SR.24H PO SCH (20:50)
[2019-03-14 00:24] VITALS: BP 122/86
[2019-03-14] MEDS: IPRATROPIUM BROMIDE 0.5 MG/2.5 ML NEBU NEB SCH ×8 (00:48→20:06)
--- NOTE | 2019-03-14 00:48 | NUR ---
Atrvincet double ordered.
[2019-03-14 05:58] LABS: BASOPHILS # (AUTO) 0.1 K/uL (0.0-8.0); EOSINOPHILS # (AUTO) 0.2 K/uL (0.0-0.7); EOSINOPHILS % (AUTO) 2.5 % (0.0-7.0); HEMATOCRIT 43.3 % (36.7-47.1); HEMOGLOBIN 13.9 g/dL (12.5-16.3); LYMPHOCYTES % (AUTO) 15.1 % (20.5-51.5); MEAN CORPUSCULAR HEMOGLOBIN 29.1 uug (23.8-33.4); MEAN CORPUSCULAR HGB CONC 32 g/dL (32.5-36.3); MEAN CORPUSCULAR VOLUME 90.6 fL (73.0-96.2); MONOCYTES # (AUTO) 0.5 K/uL (2.0-10.0); NEUTROPHILS # (AUTO) 4.6 K/uL (1.8-8.9); NEUTROPHILS % (AUTO) 73.4 % (38.5-71.5); PLATELET COUNT (AUTO) 115 K/uL (152-348); RED BLOOD CELL COUNT(AUTO) 4.78 MIL/uL (4.06-5.63); WHITE BLOOD COUNT (AUTO) 6.3 K/uL (3.6-10.2)
[2019-03-14 06:18] LABS: ALANINE AMINOTRANSFERASE 17 U/L (16-63); ALKALINE PHOSPHATASE 129 U/L (50-136); ASPARTATE AMINOTRANSFERASE 17 U/L (15-37); BILIRUBIN,TOTAL 0.8 mg/dL (0.2-1.0); CARBON DIOXIDE 30 mmol/L (21-32); CHLORIDE 100 mmol/L (98-107); CHOLESTEROL 123 mg/dL (<200); CREATININE 0.6 mg/dL (0.6-1.3); FERRITIN 50 ng/mL (26-388); GLUCOSE 192 mg/dL (74-106); HDL CHOLESTEROL 30 mg/dL (40-60); MAGNESIUM 1.7 mg/dL (1.8-2.4); PHOSPHOROUS 4.4 mg/dL (2.5-4.9); POTASSIUM 4.3 mmol/L (3.5-5.1); TOTAL PROTEIN, SERUM 6.5 g/dL (6.4-8.2); TRIGLYCERIDES 187 MG/DL (30-150); UREA NITROGEN, BLOOD 8 mg/dL (7-18)
[2019-03-14] MEDS: GABAPENTIN 400 MG CAPSULE PO SCH ×3 (06:30→21:05)
[2019-03-14 06:31] VITALS: BP 120/62
[2019-03-14] MEDS: PANTOPRAZOLE SODIUM 40 MG TABLET.DR PO SCH (06:31)
[2019-03-14] MEDS: LEVOTHYROXINE SODIUM 50 MCG TABLET PO SCH (06:31)
[2019-03-14] MEDS: BLOOD SUGAR DIAGNOSTIC 1 EACH STRIP VI SCH ×4 (06:33→20:37)
--- NOTE | 2019-03-14 06:37 | NUR ---
PT SLEPT INTERMITTENTLY. PT IN NO ACUTE DISTRESS. SAFETY AND COMFORT PROVIDED. PRESCRIBED MEDICATION GIVEN AND PT TOLERATED IT WELL. BLOOD SUGAR WAS 215 AND 202. WILL CONTINUE TO MONITOR. WILL ENDORSE TO INCOMING NURSE FOR CONTINUITY OF CARE.
--- NOTE | 2019-03-14 07:34 | NUR ---
ASLEEP IN BED BUT EASILY AROUSABLE ON ROUNDS SEEMS COMFORTABLE ON O2 AT 2L/M BY NASAL CANULA WITH NO SOB AT THIS THIS TIME NO S/S OF HYPERGLYCEMIC REACTIONS AT THIS TIME.CALL LIGHT AND HIS PERSONAL BELONGINGS ARE WITHIN EASY REACH WILL CONTINUE TO OBSERVE.
[2019-03-14] MEDS: INSULIN REGULAR, HUMAN 300 UNIT/3 ML VIAL SQ PRN ×4 (08:05→20:39)
[2019-03-14] MEDS: INSULIN GLARGINE,HUM 300 UNITS/3 ML CARTRIDGE SQ SCH ×2 (08:29→20:41)
[2019-03-14] MEDS: DOCUSATE SODIUM 100 MG CAPSULE PO SCH ×2 (08:30→16:17)
[2019-03-14] MEDS: DULOXETINE 30 MG CAPSULE.DR PO SCH (08:30)
[2019-03-14] MEDS: POTASSIUM CHLORIDE 20 MEQ TAB.PRT.SR PO SCH (08:30)
[2019-03-14] MEDS: MAGNESIUM OXIDE 400 MG TABLET PO SCH (08:30)
[2019-03-14] MEDS: HYDROCODONE/APAP 5-325MG TABLET PO SCH ×3 (08:31→16:17)
[2019-03-14] MEDS: TRIAMCINOLONE ACET 0.1% OINT 60 GM TUBE TP SCH ×2 (08:32→20:44)
[2019-03-14] MEDS: FUROSEMIDE 40 MG/4 ML VIAL IV SCH ×2 (08:32→20:30)
[2019-03-14] MEDS: DILTIAZEM HCL CD 120 MG CAP.SR.24H PO SCH (08:32)
--- NOTE | 2019-03-14 09:04 | NUR ---
PATIENT SEEN AND EXAMINED BY DR AMBRIZ MAG LEVEL IS 1.7 WITH NEW ORDERS AND NOTED
[2019-03-14] MEDS: MAGNESIUM SULFATE/D5W 100 ML IV SCH ×2 (09:49→10:59)
[2019-03-14 11:26] VITALS: BP 115/65
--- NOTE | 2019-03-14 13:30 | NUR ---
PATIENT SEEN BY THE PHYSICAL THERAPY FOR EVALUATION AND HE WALKED IN THE HALLWAY WITH THE FRONT WHEEL WALKER ON ROOM AIR AND HE DESAT TO 86 PERCENT BACK TO HIS ROOM AND PLACED BACK ON O2 AT IL/M AND SAT IS 94-PERCENT NOTED WITH SOBE RESTING AND WILL CONTINUE TO OBSERVE.
[2019-03-14 15:37] VITALS: BP 111/67
[2019-03-14] MEDS: RIVAROXABAN 10 MG TABLET PO SCH (17:15)
--- NOTE | 2019-03-14 18:00 | NUR ---
REMAIN ON XARELTO ORDERED WITH NO S/S OF BLEEDING ASSISTED NEEDED O2 TITRATION TO ONE LITER WITH SATS AT 94-95 PERCENT WITH NO SHORTNESS OF BREATH AT THIS TIME CALL LIGHTS AND ALL HIS PERSONAL BELONGINGS ARE WITHIN EASY REACH PAIN MEDICATIONS ORDERED AND COMFORTABLE WILL CONTINUE TO OBSERVE
[2019-03-14 20:15] VITALS: BP 104/62
[2019-03-14] MEDS: ropiniROLE 0.5 MG TABLET PO SCH (20:30)
[2019-03-14] MEDS: TAMSULOSIN HCL 0.4 MG CAP.SR.24H PO SCH (20:30)
[2019-03-14] MEDS: ZOLPIDEM 5 MG TABLET PO PRN (22:14)
[2019-03-15 00:10] VITALS: BP 114/68
[2019-03-15] MEDS: IPRATROPIUM BROMIDE 0.5 MG/2.5 ML NEBU NEB SCH ×8 (01:30→20:12)
[2019-03-15 04:30] VITALS: BP 127/83
--- NOTE | 2019-03-15 05:10 | NUR ---
patient received lying in bed watching TV. a/ox3. no signs of acute distress and v/s stable throughout shift. safety and comfort measures provided at all times. bed in lowest position, side rails upx2, and bed alarm on. Lasix not administered due to low blood pressure on my shift. Insulin not administered due to BS sliding scale. will continue to monitor and endorse care accordingly.
[2019-03-15] MEDS: PANTOPRAZOLE SODIUM 40 MG TABLET.DR PO SCH (06:02)
[2019-03-15] MEDS: LEVOTHYROXINE SODIUM 50 MCG TABLET PO SCH (06:02)
[2019-03-15] MEDS: GABAPENTIN 400 MG CAPSULE PO SCH ×3 (06:02→21:04)
[2019-03-15] MEDS: BLOOD SUGAR DIAGNOSTIC 1 EACH STRIP VI SCH ×4 (06:31→21:05)
[2019-03-15] MEDS ORDERED: DILT120C87 PO (07:53)
[2019-03-15] MEDS ORDERED: POTA10CA43 PO (07:53)
[2019-03-15] MEDS ORDERED: FURO-151 PO (07:53)
[2019-03-15] MEDS ORDERED: DULO30CA2 PO (07:53)
[2019-03-15 08:08] LABS: COMPLEMENT, C3 SERUM 121 mg/dL (82-167); COMPLEMENT, C4 SERUM 26 mg/dL (14-44)
[2019-03-15] MEDS: HYDROCODONE/APAP 5-325MG TABLET PO SCH ×3 (09:00→17:02)
[2019-03-15] MEDS: POTASSIUM CHLORIDE 20 MEQ TAB.PRT.SR PO SCH (09:35)
[2019-03-15] MEDS: DOCUSATE SODIUM 100 MG CAPSULE PO SCH ×2 (09:35→17:02)
[2019-03-15] MEDS: DILTIAZEM HCL CD 120 MG CAP.SR.24H PO SCH (09:36)
[2019-03-15] MEDS: FUROSEMIDE 40 MG/4 ML VIAL IV SCH ×2 (09:36→21:04)
[2019-03-15] MEDS: DULOXETINE 30 MG CAPSULE.DR PO SCH (09:37)
[2019-03-15] MEDS: TRIAMCINOLONE ACET 0.1% OINT 60 GM TUBE TP SCH ×2 (09:38→21:04)
[2019-03-15] MEDS: INSULIN REGULAR, HUMAN 300 UNIT/3 ML VIAL SQ PRN ×2 (09:40→12:31)
[2019-03-15] MEDS: INSULIN GLARGINE,HUM 300 UNITS/3 ML CARTRIDGE SQ SCH ×2 (09:41→21:06)
[2019-03-15 11:28] VITALS: BP 118/76
[2019-03-15 15:06] LABS: *ANTI-SCLERODERMA-70 AB <0.2 AI (0.0-0.9); *SJOGREN'S ANTI-SS-A <0.2 AI (0.0-0.9); *SJOGREN'S ANTI-SS-B <0.2 AI (0.0-0.9); *SMITH ANTIBODIES <0.2 AI (0.0-0.9)
[2019-03-15 15:12] VITALS: BP 108/62
[2019-03-15 16:12] LABS: ANTI-DNA(DS) AB, QN <1 IU/mL (0-9)
[2019-03-15] MEDS: RIVAROXABAN 10 MG TABLET PO SCH (17:14)
--- NOTE | 2019-03-15 19:20 | NUR ---
RECEIVED PATIENT LYING IN BED. AAOX4. IN NO ACUTE DISTRESS. DENIES ANY PAIN OR SOB ON RA. O2 SAT AT 96%. IV SITE ON LEFT AC INTACT AND PATENT. A. FLUTTER ON TELE AT 67/MIN. SAFETY MEASURE INITIATED AND CALL VILLASENOR WITHIN REACHED.
--- NOTE | 2019-03-15 20:14 | NUR ---
Atrvincet double ordered.
[2019-03-15 20:49] VITALS: BP 101/56
[2019-03-15] MEDS: ropiniROLE 0.5 MG TABLET PO SCH (21:04)
[2019-03-15] MEDS: TAMSULOSIN HCL 0.4 MG CAP.SR.24H PO SCH (21:04)
[2019-03-15] MEDS: ZOLPIDEM 5 MG TABLET PO PRN (21:04)
[2019-03-16] MEDS: IPRATROPIUM BROMIDE 0.5 MG/2.5 ML NEBU NEB SCH ×4 (00:35→08:46)
--- NOTE | 2019-03-16 00:36 | NUR ---
Atrvincet double ordered.
[2019-03-16 00:44] VITALS: BP 105/57
[2019-03-16 05:46] VITALS: BP 109/43
--- NOTE | 2019-03-16 05:49 | NUR ---
AAOX4. IN NO ACUTE DISTRESS. DENIES ANY PAIN OR SOB ON RA. ON O2 AT 1LPM VIA NC. O2 SAT AT 96%. IV SITE ON LEFT AC INTACT AND PATENT. A. FLUTTER ON TELE AT 91/MIN. ABLE TO KEEP CIPAP DURING THE NIGHT. SAFETY MEASURE MAINTAINED AND CALL VILLASENOR WITHIN REACHED
[2019-03-16] MEDS: PANTOPRAZOLE SODIUM 40 MG TABLET.DR PO SCH (06:13)
[2019-03-16] MEDS: GABAPENTIN 400 MG CAPSULE PO SCH (06:13)
[2019-03-16] MEDS: LEVOTHYROXINE SODIUM 50 MCG TABLET PO SCH (06:13)
[2019-03-16] MEDS: BLOOD SUGAR DIAGNOSTIC 1 EACH STRIP VI SCH (06:36)
[2019-03-16] MEDS: POTASSIUM CHLORIDE 20 MEQ TAB.PRT.SR PO SCH (08:20)
[2019-03-16] MEDS: DULOXETINE 30 MG CAPSULE.DR PO SCH (08:21)
[2019-03-16] MEDS: DOCUSATE SODIUM 100 MG CAPSULE PO SCH (08:21)
[2019-03-16] MEDS: HYDROCODONE/APAP 5-325MG TABLET PO SCH (08:21)
[2019-03-16] MEDS: DILTIAZEM HCL CD 120 MG CAP.SR.24H PO SCH ×2 (08:22→11:39)
[2019-03-16] MEDS: FUROSEMIDE 40 MG/4 ML VIAL IV SCH (09:00)
[2019-03-16] MEDS: TRIAMCINOLONE ACET 0.1% OINT 60 GM TUBE TP SCH (09:15)
[2019-03-16] MEDS: INSULIN GLARGINE,HUM 300 UNITS/3 ML CARTRIDGE SQ SCH (09:15)
[2019-03-16 11:39] VITALS: BP 117/86
--- NOTE | 2019-03-16 11:40 | NUR ---
RECEIVED DISCHARGE ORDER TO [facility], WITH 2 EMT. ALERT AND ORIENTED DISCHARGE INSTRUCTION GIVEN AND VERBALIZED UNDERSTANDING, IV AND ID BAND REMOVED. BELONGINGS ACCOUNTED FOR AND SIGNED, PICTURES TAKEN. QUESTIONS AND CONCERNS ADDRESSED.
== END 2019-03-16 11:40 | DRG 302 ==
LOC: ER 20:25 → TELE3 03-13 00:07
PROVIDERS: ADMIT Internal Medicine; ATTEND Internal Medicine
PROC: 5A09357 Assistance with Respiratory Ventilation, Less than 24 Consecutive Hours, Continuous Positive Airway Pressure (ICD-10-PCS; principal; 2019-03-13)
DX: I25.10 Atherosclerotic heart disease of native coronary artery without angina pectoris (principal); I50.33 Acute on chronic diastolic (congestive) heart failure; I45.2 Bifascicular block; Z68.43 Body mass index [BMI] 50.0-59.9, adult; I48.20 Chronic atrial fibrillation, unspecified; I48.92 Unspecified atrial flutter; M79.605 Pain in left leg; M79.604 Pain in right leg; J44.9 Chronic obstructive pulmonary disease, unspecified; E66.01 Morbid (severe) obesity due to excess calories; I48.0 Paroxysmal atrial fibrillation; E11.40 Type 2 diabetes mellitus with diabetic neuropathy, unspecified; G56.00 Carpal tunnel syndrome, unspecified upper limb; M19.90 Unspecified osteoarthritis, unspecified site; I71.2 Thoracic aortic aneurysm, without rupture; R91.1 Solitary pulmonary nodule; G47.33 Obstructive sleep apnea (adult) (pediatric); Z86.718 Personal history of other venous thrombosis and embolism; R06.03 Acute respiratory distress; Z87.891 Personal history of nicotine dependence; Z80.7 Family history of other malignant neoplasms of lymphoid, hematopoietic and related tissues; Z79.890 Hormone replacement therapy; Z86.711 Personal history of pulmonary embolism; Z79.4 Long term (current) use of insulin; Z79.01 Long term (current) use of anticoagulants
CPT/HCPCS: 36415; 36600; 70030-TC; 71045; 78579; 83605; 83735; 84100; 85025; 85651; 85730; 86038; 86160; 87040; 87400; 93005; 94640; 94660; 94664; A4663; A9150; A9540; A9567; G0378; J1650; J1815; J1940; J2270; J2405; J2543; J3475; J3590; J7050; J7060; Q0163